=== PATIENT | male | born 1980 | race Caucasian/White ===

== ENCOUNTER 2016-09-16 11:20 | Emergency (ER) | payer OTHER ==
[~2016-09-16] VITALS: Ht 175.2 cm; Wt 127.0 kg
[~2016-09-16 11:20] MED LIST: ACULAR 0.5%3 ML OPH; ATARAX,VISTARIL50 MG PO; BACTRIM DS 8001 TA1 PO; BENTYL20 MG PO; CLINDAMYCIN HC300 MG PO; DICYCLOMINE HCL20 MG PO; EPIPEN 2-PAK1 MG/ML MR; ERYTHROMYCIN5 MG/G1 OP; FLEXERIL10 MG PO; GEODON40 MG PO; HYDROCODONE BIT1 T11 PO; HYDROXYZINE HCL25 M1 PO; KEFLEX500 MG PO; LIDEX 0.05% CRE15 GM T; MOTRIN800 MG PO; NKHM; NO DAILY MEDS; ONDANSETRON HYDR4 M1 PO; PEPCID20 MG PO; PERCOCET 325 MG1 TA3 PO; PREDNISONE10 MG PO; ROBAXIN750 MG PO; SINEMET 25-100M1 TAB PO; TAMIFLU 75MG CA75 MG PO; TOBRADEX 0.1%-01 OI1 OP; TOBREX OPHTH S2.5 ML OPH; VICODIN 5/500 505 MG PO; VICODIN 500 MG-1 TAB PO
[2016-09-16 11:29] VITALS: BP 158/98
[2016-09-16] MEDS ORDERED: BLEPH-10 15 ML15 ML OPH (12:11)
[2016-10-26] MEDS ORDERED: ACULAR 3ML 3 ML5 ML OPH (06:37)
== END 2016-09-16 13:29 | disposition home or self-care (01) ==
LOC: ED 11:20
DX: S05.11XA Contusion of eyeball and orbital tissues, right eye, initial encounter (principal); F12.10 Cannabis abuse, uncomplicated; F11.10 Opioid abuse, uncomplicated; F19.20 Other psychoactive substance dependence, uncomplicated; W22.8XXA Striking against or struck by other objects, initial encounter; Y93.9 Activity, unspecified; Y92.9 Unspecified place or not applicable; Y99.9 Unspecified external cause status

== ENCOUNTER 2019-11-12 12:49 | Emergency (ER) | payer OTHER ==
[~2019-11-12 12:49] MED LIST changes: +ACULAR 3ML 3 ML5 ML OPH; +BLEPH-10 15 ML15 ML OPH
[2019-11-12 12:56] VITALS: BP 153/96
== END 2019-11-12 12:56 | disposition home or self-care (01) ==
LOC: ED 12:49
DX: R50.9 Fever, unspecified (principal); R52 Pain, unspecified

== ENCOUNTER 2020-09-11 16:00 | Emergency (ER) | payer OTHER ==
[~2020-09-11] VITALS: Ht 175.2 cm; Wt 108.9 kg
[2020-09-11 16:29] VITALS: BP 146/80
[2020-09-11] MEDS ORDERED: Tobrex Ophth S2.5 ML OPH (19:11)
== END 2020-09-11 19:18 | disposition home or self-care (01) ==
LOC: ED 16:00
DX: S05.01XA Injury of conjunctiva and corneal abrasion without foreign body, right eye, initial encounter (principal); W22.8XXA Striking against or struck by other objects, initial encounter; Y93.89 Activity, other specified; Y92.89 Other specified places as the place of occurrence of the external cause; Y99.8 Other external cause status

== ENCOUNTER 2020-12-19 19:07 | Emergency (ER) | payer OTHER ==
[~2020-12-19 19:07] MED LIST changes: +Tobrex Ophth S2.5 ML OPH
[2020-12-19 19:56] VITALS: BP 142/78
== END 2020-12-19 20:59 | disposition home or self-care (01) ==
LOC: ED 19:07
DX: S51.812A Laceration without foreign body of left forearm, initial encounter (principal); W31.89XA Contact with other specified machinery, initial encounter; Y93.89 Activity, other specified; Y92.090 Kitchen in other non-institutional residence as the place of occurrence of the external cause; Y99.9 Unspecified external cause status

== ENCOUNTER 2022-05-19 20:36 | Emergency (ER) | payer OTHER ==
[~2022-05-19] VITALS: Wt 90.7 kg
[2022-05-19 20:46] VITALS: BP 145/88
[2022-05-19 21:41] LABS: BASO % 0.4 % (0.0-1.0); EOS # 0.2 10*3/uL (0.0-0.4); EOS % 1.8 % (1.0-4.0); HEMATOCRIT 45.8 % (42.0-52.0); LYMPH # 1.5 10*3/uL (1.3-4.4); LYMPH % 14.6 % (27.0-41.0); MEAN CELL VOLUME 91.1 fl (80.0-94.0); MEAN CORPUSCULAR HGB 30.2 pg (27.0-31.0); MEAN CORPUSCULAR HGB CONC 33.2 g/dl (33.0-37.0); MEAN PLATELET VOLUME 10.5 fl (9.6-12.3); MONO # 0.6 10*3/uL (0.1-1.0); MONO % 5.5 % (3.0-9.0); NEUT # 7.7 10*3/uL (2.3-7.9); NEUT % 77.5 % (47.0-73.0); PLATELET COUNT AUTOMATED 182 10*3/uL (130-400); RED BLOOD COUNT 5.03 10*6/uL (4.50-5.90); RED CELL DISTRI WIDTH 12.5 % (0-14.5)
[2022-05-19 21:56] LABS: ALKALINE PHOSPHATASE 109 U/L (45-117); BUN 14 mg/dl (7-24); CHLORIDE 105 mmol/L (98-107); CREATININE 0.85 mg/dL (0.70-1.30); POTASSIUM 3.9 mmol/L (3.5-5.1); SGOT/AST 14 IU/L (3-35); SGPT/ALT 22 U/L (12-78); SODIUM 139 mmol/L (136-145)
[2022-05-19] MEDS ORDERED: IBUPROFEN600 MG PO (22:48)
[2022-05-19] MEDS ORDERED: VIBRAMYCIN100 MG PO (22:48)
== END 2022-05-19 23:09 | disposition left against medical advice (07) ==
LOC: ED 20:36
PROVIDERS: Physician Assistant
DX: L08.9 Local infection of the skin and subcutaneous tissue, unspecified (principal); Z88.8 Allergy status to other drugs, medicaments and biological substances

== ENCOUNTER 2022-12-11 15:26 | Emergency (ER) | payer OTHER ==
[~2022-12-11] VITALS: Ht 175.2 cm; Wt 90.7 kg
[~2022-12-11 15:26] MED LIST changes: +IBUPROFEN600 MG PO; +VIBRAMYCIN100 MG PO
[2022-12-11] MEDS ORDERED: SUBOXONE 8 MG-1 EACH SL (15:45)
[2022-12-11 16:09] LABS: BASO # 0.1 10*3/uL (0.0-0.1); BASO % 0.7 % (0.0-1.0); EOS # 0.1 10*3/uL (0.0-0.4); EOS % 1.9 % (1.0-4.0); HEMATOCRIT 43.3 % (42.0-52.0); LYMPH # 2.1 10*3/uL (1.3-4.4); MEAN CELL VOLUME 88.7 fl (80.0-94.0); MEAN CORPUSCULAR HGB 29.9 pg (27.0-31.0); MEAN CORPUSCULAR HGB CONC 33.7 g/dl (33.0-37.0); MONO # 0.3 10*3/uL (0.1-1.0); MONO % 4.7 % (3.0-9.0); NEUT # 4.2 10*3/uL (2.3-7.9); NEUT % 61.4 % (47.0-73.0); PLATELET COUNT AUTOMATED 209 10*3/uL (130-400); RED BLOOD COUNT 4.88 10*6/uL (4.50-5.90); RED CELL DISTRI WIDTH 13.2 % (0-14.5); WHITE BLOOD COUNT 6.8 10*3/uL (4.8-10.8)
[2022-12-11 16:23] LABS: ALKALINE PHOSPHATASE 91 U/L (46-116); BUN 10 mg/dl (9-23); CHLORIDE 102 mmol/L (98-107); SGPT/ALT 9 U/L (10-49); TOTAL PROTEIN 6.8 gm/dL (6.0-8.0)
[2022-12-11 18:58] VITALS: BP 143/80
== END 2022-12-11 20:10 | disposition short-term general hospital (02) ==
LOC: ED 15:26
PROVIDERS: Internal Medicine
DX: S02.2XXB Fracture of nasal bones, initial encounter for open fracture (principal); K08.89 Other specified disorders of teeth and supporting structures; I10 Essential (primary) hypertension; M19.90 Unspecified osteoarthritis, unspecified site; Z88.5 Allergy status to narcotic agent; W22.8XXA Striking against or struck by other objects, initial encounter; Y93.89 Activity, other specified; Y92.89 Other specified places as the place of occurrence of the external cause; Y99.0 Civilian activity done for income or pay

== ENCOUNTER 2024-04-24 13:10 | Emergency (ER) | payer OTHER ==
[~2024-04-24] VITALS: Wt 79.8 kg
[~2024-04-24 13:10] MED LIST changes: +SUBOXONE 8 MG-1 EACH SL
[2024-04-24 13:30] VITALS: BP 120/82
[2024-04-24] MEDS ORDERED: Acetaminophen/Hydrocodone 5 MG/325 MG TABLET PO ONE (13:40)
[2024-04-24] MEDS ORDERED: VIBRAMYCIN100 MG PO (14:12)
[2024-04-24] MEDS ORDERED: HYDROCODONE-AC1 EAC1 PO (14:16)
[2024-04-29] MEDS ORDERED: NEURONTIN600 MG PO (15:27)
[2024-05-01] MEDS ORDERED: XARELTO10 MG PO (10:37)
[2024-05-01] MEDS ORDERED: DOXYCYCLINE150 MG PO (10:37)
[2024-05-01] MEDS ORDERED: TYLENOL EXTRA500 MG PO ×2 (10:37→11:36)
[2024-05-01] MEDS ORDERED: TRAMADOL HCL25 MG PO (11:42)
== END 2024-04-24 14:35 | disposition home or self-care (01) ==
LOC: ED 13:10
DX: S92.312A Displaced fracture of first metatarsal bone, left foot, initial encounter for closed fracture (principal); S92.325A Nondisplaced fracture of second metatarsal bone, left foot, initial encounter for closed fracture; Z88.5 Allergy status to narcotic agent; W20.8XXA Other cause of strike by thrown, projected or falling object, initial encounter; Y93.89 Activity, other specified; Y92.89 Other specified places as the place of occurrence of the external cause; Y99.8 Other external cause status

== ENCOUNTER → 2024-05-01 | Day surgery (SDC) | payer OTHER ==
[~2024-05-01] VITALS: Ht 167.6 cm; Wt 79.8 kg
[2024-05-01] VITALS (7 sets, daily range): BP systolic 129–162; BP diastolic 74–102
[~2024-05-01] MED LIST changes: +ACETAMINOPHEN 100 ML IV ONE; +BUPIVACAINE 0.5% 30 ML IV ONE; +CIPRO500 MG PO; +Clindamycin Phosphate 50 ML IV ONE; +DOXYCYCLINE150 MG PO; +Dexamethasone Sodium Phospha 4 MG/ML VIAL IV ONE; +HYDROCODONE-AC1 EAC1 PO; +HYDROmorphONE Hydrochloride 0.5 MG/0.5 ML SYRINGE IV PRN; +HYDROmorphONE Hydrochloride 0.5 MG/0.5 ML SYRINGE ONE; +Ketamine Hydrochloride 500 MG/10 ML VIAL IV ONE; +Ketorolac Tromethamine 30 MG/ML VIAL IV ONE; +Lactated Ringer's Solution 1,000 ML IV ONE; +Lidocaine Hydrochloride 5 ML VIAL IV ONE; +MAGNESIUM SULFATE 1 GM/2 ML VIAL IV ONE; +Midazolam Hydrochloride 2 MG/2 ML VIAL IV ONE; +NEURONTIN600 MG PO; +Ondansetron Hydrochloride 4 MG/2 ML VIAL IV ONE; +PROPOFOL 200 MG/20 ML VIAL IV ONE; +SEVOFLURANE 250 ML BOT INH ONE; +TRAMADOL HCL25 MG PO; +TYLENOL EXTRA500 MG PO; +Vancomycin Hydrochloride 1,000 MG VIAL T ONE; +XARELTO10 MG PO; +fentaNYL CITRATE 100 MCG/2 ML VIAL IV ONE
== END | disposition home or self-care (01) ==
LOC: SDC 04-29 14:00
PROVIDERS: ATTEND Podiatrist
DX: S92.312A Displaced fracture of first metatarsal bone, left foot, initial encounter for closed fracture (principal); I10 Essential (primary) hypertension; F12.90 Cannabis use, unspecified, uncomplicated; Z90.89 Acquired absence of other organs; Z98.890 Other specified postprocedural states; Z88.5 Allergy status to narcotic agent; Z79.891 Long term (current) use of opiate analgesic; Z79.899 Other long term (current) drug therapy; X58.XXXA Exposure to other specified factors, initial encounter; Y93.89 Activity, other specified; Y92.89 Other specified places as the place of occurrence of the external cause; Y99.8 Other external cause status

== ENCOUNTER 2024-05-16 13:10 | Emergency (ER) | payer OTHER ==
[~2024-05-16] VITALS: Ht 175.2 cm; Wt 90.7 kg
[~2024-05-16 13:10] MED LIST changes: -ACETAMINOPHEN 100 ML IV ONE; -BUPIVACAINE 0.5% 30 ML IV ONE; -CIPRO500 MG PO; -Clindamycin Phosphate 50 ML IV ONE; -Dexamethasone Sodium Phospha 4 MG/ML VIAL IV ONE; -HYDROmorphONE Hydrochloride 0.5 MG/0.5 ML SYRINGE IV PRN; -HYDROmorphONE Hydrochloride 0.5 MG/0.5 ML SYRINGE ONE; -Ketamine Hydrochloride 500 MG/10 ML VIAL IV ONE; -Ketorolac Tromethamine 30 MG/ML VIAL IV ONE; -Lactated Ringer's Solution 1,000 ML IV ONE; -Lidocaine Hydrochloride 5 ML VIAL IV ONE; -MAGNESIUM SULFATE 1 GM/2 ML VIAL IV ONE; -Midazolam Hydrochloride 2 MG/2 ML VIAL IV ONE; -Ondansetron Hydrochloride 4 MG/2 ML VIAL IV ONE; -PROPOFOL 200 MG/20 ML VIAL IV ONE; -SEVOFLURANE 250 ML BOT INH ONE; -Vancomycin Hydrochloride 1,000 MG VIAL T ONE; -fentaNYL CITRATE 100 MCG/2 ML VIAL IV ONE
[2024-05-16 13:13] VITALS: BP 153/94
[2024-05-16] MEDS ORDERED: SODIUM CHLORIDE 0.9% 1,000 ML IV ONE (13:30)
[2024-05-16 13:49] LABS: BASO # 0.1 10*3/uL (0.0-0.1); BASO % 0.6 % (0.0-1.0); EOS # 0.1 10*3/uL (0.0-0.4); EOS % 1.1 % (1.0-4.0); HEMATOCRIT 39.3 % (42.0-52.0); LYMPH # 1.7 10*3/uL (1.3-4.4); LYMPH % 19.9 % (27.0-41.0); MEAN CELL VOLUME 88.9 fl (80.0-94.0); MEAN CORPUSCULAR HGB 30.3 pg (27.0-31.0); MEAN CORPUSCULAR HGB CONC 34.1 g/dl (33.0-37.0); MEAN PLATELET VOLUME 9.9 fl (9.6-12.3); MONO # 0.4 10*3/uL (0.1-1.0); NEUT # 6.1 10*3/uL (2.3-7.9); NEUT % 73.2 % (47.0-73.0); PLATELET COUNT AUTOMATED 231 10*3/uL (130-400); RED BLOOD COUNT 4.42 10*6/uL (4.50-5.90); RED CELL DISTRI WIDTH 13.1 % (0-14.5); WHITE BLOOD COUNT 8.3 10*3/uL (4.8-10.8)
[2024-05-16 14:08] LABS: BUN 11 mg/dl (9-23); CHLORIDE 103 mmol/L (98-107)
[2024-05-16] MEDS ORDERED: CIPRO500 MG PO (17:43)
[2024-05-16] MEDS ORDERED: VIBRAMYCIN100 MG PO (17:43)
== END 2024-05-16 19:31 | disposition home or self-care (01) ==
LOC: ED 13:10
PROVIDERS: Emergency Medicine
DX: L03.116 Cellulitis of left lower limb (principal); I10 Essential (primary) hypertension; M19.90 Unspecified osteoarthritis, unspecified site; Z88.5 Allergy status to narcotic agent; Z90.89 Acquired absence of other organs; Z98.890 Other specified postprocedural states; Z87.891 Personal history of nicotine dependence

== ENCOUNTER 2024-05-30 12:54 | Emergency (ER) | payer OTHER ==
[~2024-05-30] VITALS: Ht 175.2 cm; Wt 68.0 kg
[~2024-05-30 12:54] MED LIST changes: +CIPRO500 MG PO
[2024-05-30 13:16] VITALS: BP 147/92
== END 2024-05-30 13:51 | disposition left against medical advice (07) ==
LOC: ED 12:54
DX: R10.11 Right upper quadrant pain (principal); R11.10 Vomiting, unspecified; F19.10 Other psychoactive substance abuse, uncomplicated; Z88.5 Allergy status to narcotic agent; Z90.89 Acquired absence of other organs; Z98.890 Other specified postprocedural states; Z53.29 Procedure and treatment not carried out because of patient's decision for other reasons

== ENCOUNTER 2024-06-10 17:20 | Inpatient (IN) | payer OTHER ==
[~2024-06-10] VITALS: Ht 167.6 cm; Wt 83.6 kg
[2024-06-10 17:53] VITALS: BP 136/81
[2024-06-10] MEDS ORDERED: SODIUM CHLORIDE 0.9% 1,000 ML IV SCH (18:20)
[2024-06-10] MEDS ORDERED: Piperacillin Sodium/Tazobact 50 ML IV ONE (18:25)
[2024-06-10] MEDS ORDERED: Ketorolac Tromethamine 30 MG/ML VIAL IV ONE (18:25)
[2024-06-10] MEDS ORDERED: Vancomycin Hydrochloride 250 ML IV ONE (18:25)
[2024-06-10] MEDS ORDERED: IOHEXOL 300 MG/ML 100 ML VIAL IV ONE (18:35)
[2024-06-10 18:42] LABS: BASO % 0.5 % (0.0-1.0); EOS # 0.1 10*3/uL (0.0-0.4); EOS % 1.8 % (1.0-4.0); HEMATOCRIT 41.7 % (42.0-52.0); LYMPH # 1.9 10*3/uL (1.3-4.4); LYMPH % 28.1 % (27.0-41.0); MEAN CELL VOLUME 94.6 fl (80.0-94.0); MEAN CORPUSCULAR HGB 30.4 pg (27.0-31.0); MEAN CORPUSCULAR HGB CONC 32.1 g/dl (33.0-37.0); MEAN PLATELET VOLUME 9.8 fl (9.6-12.3); MONO # 0.5 10*3/uL (0.1-1.0); MONO % 7.4 % (3.0-9.0); NEUT # 4.1 10*3/uL (2.3-7.9); NEUT % 61.7 % (47.0-73.0); PLATELET COUNT AUTOMATED 216 10*3/uL (130-400); RED BLOOD COUNT 4.41 10*6/uL (4.50-5.90); RED CELL DISTRI WIDTH 13.9 % (0-14.5); WHITE BLOOD COUNT 6.6 10*3/uL (4.8-10.8)
[2024-06-10 18:54] LABS: ACT PARTIAL THROMBO TIME 27.9 SECONDS (20.0-32.1)
[2024-06-10 19:02] LABS: ALKALINE PHOSPHATASE 114 U/L (46-116); BUN 9 mg/dl (9-23); CHLORIDE 103 mmol/L (98-107); SGPT/ALT 8 U/L (5-49); TOTAL PROTEIN 6.7 gm/dL (6.0-8.0)
[2024-06-10] MEDS ORDERED: Magnesium Hydroxide 30 ML UDC PO PRN (20:45)
[2024-06-10] MEDS ORDERED: Acetaminophen/Hydrocodone 5 MG/325 MG TABLET PO PRN (20:45)
[2024-06-10] MEDS ORDERED: Ondansetron Hydrochloride 4 MG/2 ML VIAL IV PRN (20:45)
[2024-06-10] MEDS ORDERED: BISACODYL 10 MG SUPP R PRN (20:45)
[2024-06-10] MEDS ORDERED: ACETAMINOPHEN 650 MG SUPP R PRN (20:45)
[2024-06-10] MEDS ORDERED: ACETAMINOPHEN 325 MG TAB PO PRN (20:45)
[2024-06-10] MEDS ORDERED: BISACODYL 5 MG TAB PO PRN (20:45)
[2024-06-10 21:47] VITALS: BP 124/70
[2024-06-10] MEDS ORDERED: Vancomycin Hydrochloride 1,000 MG in SODIUM CHLORIDE 0.9% 250 ML IV SCH (22:00)
[2024-06-10] MEDS ORDERED: methylPREDNISolone 4 MG TAB PO SCH (22:00)
[2024-06-11 00:56] VITALS: BP 121/70
[2024-06-11 00:57] VITALS: BP 121/70
[2024-06-11] MEDS ORDERED: Piperacillin Sodium/Tazobact 50 ML IV SCH (02:00)
[2024-06-11] MEDS ORDERED: GABAPENTIN 600 MG TAB PO SCH (06:00)
[2024-06-11 06:38] LABS: BASO % 0.8 % (0.0-1.0); EOS # 0.1 10*3/uL (0.0-0.4); EOS % 2.8 % (1.0-4.0); HEMATOCRIT 40.7 % (42.0-52.0); LYMPH # 1.9 10*3/uL (1.3-4.4); LYMPH % 37.7 % (27.0-41.0); MEAN CELL VOLUME 94.9 fl (80.0-94.0); MEAN CORPUSCULAR HGB 30.1 pg (27.0-31.0); MEAN CORPUSCULAR HGB CONC 31.7 g/dl (33.0-37.0); MEAN PLATELET VOLUME 9.9 fl (9.6-12.3); MONO # 0.4 10*3/uL (0.1-1.0); MONO % 8.7 % (3.0-9.0); NEUT # 2.5 10*3/uL (2.3-7.9); NEUT % 49.8 % (47.0-73.0); PLATELET COUNT AUTOMATED 186 10*3/uL (130-400); RED BLOOD COUNT 4.29 10*6/uL (4.50-5.90); RED CELL DISTRI WIDTH 14.2 % (0-14.5); WHITE BLOOD COUNT 5.1 10*3/uL (4.8-10.8)
[2024-06-11 06:59] LABS: BUN 12 mg/dl (9-23); CHLORIDE 108 mmol/L (98-107); CHOLESTEROL 189 mg/dL (<200); FREE T4 0.87 ng/dl (0.89-1.76); LDL CHOLESTEROL 115 mg/dL (9-159); TRIGLYCERIDES 63 mg/dl (<150)
[2024-06-11 08:00] VITALS: BP 120/85
[2024-06-11] MEDS ORDERED: methylPREDNISolone 4 MG TAB PO SCH ×2 (08:30→12:30)
[2024-06-11] MEDS ORDERED: Enoxaparin Sodium 40 MG/0.4 ML SYR SC SCH (10:00)
[2024-06-11] MEDS ORDERED: Lactobacillus Acidophilus/LA 1 TAB TAB PO SCH (10:00)
[2024-06-11 12:00] VITALS: BP 129/83
[2024-06-11 16:00] VITALS: BP 138/85
[2024-06-11 20:00] VITALS: BP 132/81
[2024-06-11] MEDS ORDERED: Vancomycin Hydrochloride 1,000 MG in SODIUM CHLORIDE 0.9% 250 ML IV SCH (22:00)
[2024-06-12] VITALS: BP 133/77
[2024-06-12 06:24] LABS: BASO % 0.3 % (0.0-1.0); HEMATOCRIT 44.4 % (42.0-52.0); LYMPH # 1.2 10*3/uL (1.3-4.4); LYMPH % 10.2 % (27.0-41.0); MEAN CELL VOLUME 92.9 fl (80.0-94.0); MEAN CORPUSCULAR HGB 30.5 pg (27.0-31.0); MEAN CORPUSCULAR HGB CONC 32.9 g/dl (33.0-37.0); MEAN PLATELET VOLUME 10.6 fl (9.6-12.3); MONO # 0.4 10*3/uL (0.1-1.0); NEUT % 86.1 % (47.0-73.0); PLATELET COUNT AUTOMATED 229 10*3/uL (130-400); RED BLOOD COUNT 4.78 10*6/uL (4.50-5.90); RED CELL DISTRI WIDTH 13.5 % (0-14.5); WHITE BLOOD COUNT 11.7 10*3/uL (4.8-10.8)
[2024-06-12 06:52] LABS: BUN 11 mg/dl (9-23); CHLORIDE 102 mmol/L (98-107); POTASSIUM 4.5 mmol/L (3.4-5.1)
[2024-06-12] MEDS ORDERED: methylPREDNISolone 4 MG TAB PO SCH ×2 (07:30→22:00)
[2024-06-12 08:00] VITALS: BP 124/93; BP 127/78
[2024-06-12] MEDS ORDERED: Cholecalciferol 2,000 UNIT TABLET (50 MCG) PO SCH (10:00)
[2024-06-12] MEDS ORDERED: VITAMIN D350 MCG PO (12:08)
[2024-06-12] MEDS ORDERED: LACTINEX 0.2 MG1 TAB PO (12:08)
[2024-06-12] MEDS ORDERED: DOXYCYCLINE HY100 M3 PO (12:08)
[2024-06-13] MEDS ORDERED: methylPREDNISolone 4 MG TAB PO SCH (22:00)
[2024-06-14] MEDS ORDERED: methylPREDNISolone 4 MG TAB PO SCH (07:30)
[2024-06-15] MEDS ORDERED: methylPREDNISolone 4 MG TAB PO SCH (07:30)
== END 2024-06-12 12:36 | disposition left against medical advice (07) | DRG 721 ==
LOC: ED 17:20 → 4E 20:18 → EDHOLD 20:18 → 4E 22:48
PROVIDERS: Nurse Practitioner; Student in an Organized Health Care Education/Training Program; ADMIT Family Medicine; ATTEND Family Medicine
DX: T81.49XA Infection following a procedure, other surgical site, initial encounter (principal); E44.1 Mild protein-calorie malnutrition; L03.116 Cellulitis of left lower limb; D64.9 Anemia, unspecified; G62.9 Polyneuropathy, unspecified; Z88.8 Allergy status to other drugs, medicaments and biological substances; Z82.49 Family history of ischemic heart disease and other diseases of the circulatory system; Z83.3 Family history of diabetes mellitus; Z68.29 Body mass index [BMI] 29.0-29.9, adult; Y83.8 Other surgical procedures as the cause of abnormal reaction of the patient, or of later complication, without mention of misadventure at the time of the procedure; Y92.89 Other specified places as the place of occurrence of the external cause; Z88.6 Allergy status to analgesic agent; Z82.3 Family history of stroke

== ENCOUNTER 2024-06-23 19:08 | Inpatient (IN) | payer OTHER ==
[~2024-06-23] VITALS: Ht 175.2 cm; Wt 91.2 kg
[~2024-06-23 19:08] MED LIST changes: +DOXYCYCLINE HY100 M3 PO; +LACTINEX 0.2 MG1 TAB PO; +VITAMIN D350 MCG PO
[2024-06-23 19:51] VITALS: BP 145/83
[2024-06-23] MEDS ORDERED: Piperacillin Sodium/Tazobact 50 ML IV ONE (20:30)
[2024-06-23] MEDS ORDERED: SODIUM CHLORIDE 0.9% 1,000 ML IV SCH (20:30)
[2024-06-23] MEDS ORDERED: Vancomycin Hydrochloride 250 ML IV ONE (20:30)
[2024-06-23 21:02] LABS: BASO # 0.1 10*3/uL (0.0-0.1); BASO % 0.5 % (0.0-1.0); EOS # 0.1 10*3/uL (0.0-0.4); EOS % 1.3 % (1.0-4.0); HEMATOCRIT 39.4 % (42.0-52.0); MEAN CELL VOLUME 92.7 fl (80.0-94.0); MEAN CORPUSCULAR HGB 30.1 pg (27.0-31.0); MEAN CORPUSCULAR HGB CONC 32.5 g/dl (33.0-37.0); MONO # 0.7 10*3/uL (0.1-1.0); MONO % 7.5 % (3.0-9.0); NEUT # 6.4 10*3/uL (2.3-7.9); NEUT % 66.5 % (47.0-73.0); PLATELET COUNT AUTOMATED 241 10*3/uL (130-400); RED BLOOD COUNT 4.25 10*6/uL (4.50-5.90); RED CELL DISTRI WIDTH 12.9 % (0-14.5); WHITE BLOOD COUNT 9.7 10*3/uL (4.8-10.8)
[2024-06-23 21:22] LABS: ALKALINE PHOSPHATASE 117 U/L (46-116); BUN 14 mg/dl (9-23); CHLORIDE 104 mmol/L (98-107); POTASSIUM 3.6 mmol/L (3.4-5.1); SGPT/ALT 10 U/L (5-49); TOTAL PROTEIN 6.8 gm/dL (6.0-8.0)
[2024-06-23] MEDS ORDERED: Acetaminophen/Hydrocodone 5 MG/325 MG TABLET PO PRN (22:40)
[2024-06-23] MEDS ORDERED: Ondansetron Hydrochloride 4 MG/2 ML VIAL IV PRN (22:40)
[2024-06-23] MEDS ORDERED: BISACODYL 5 MG TAB PO PRN (22:40)
[2024-06-23] MEDS ORDERED: Magnesium Hydroxide 30 ML UDC PO PRN (22:40)
[2024-06-23] MEDS ORDERED: ACETAMINOPHEN 650 MG SUPP R PRN (22:40)
[2024-06-23] MEDS ORDERED: BISACODYL 10 MG SUPP R PRN (22:40)
[2024-06-23] MEDS ORDERED: ACETAMINOPHEN 325 MG TAB PO PRN (22:40)
[2024-06-23] MEDS ORDERED: Vancomycin Hydrochloride 1,000 MG in SODIUM CHLORIDE 0.9% 250 ML IV SCH (22:45)
[2024-06-23] MEDS ORDERED: diphenhydrAMINE hydrochloride 25 MG CAP PO PRN (23:20)
[2024-06-24] VITALS (7 sets, daily range): BP systolic 99–139; BP diastolic 57–80
[2024-06-24] MEDS ORDERED: Piperacillin Sodium/Tazobact 50 ML IV SCH (02:00)
[2024-06-24] MEDS ORDERED: GABAPENTIN 600 MG TAB PO SCH (06:00)
[2024-06-24] MEDS ORDERED: Vancomycin Hydrochloride 1,000 MG in SODIUM CHLORIDE 0.9% 250 ML IV SCH (06:00)
[2024-06-24 06:47] LABS: BASO % 0.6 % (0.0-1.0); EOS # 0.1 10*3/uL (0.0-0.4); EOS % 1.5 % (1.0-4.0); HEMATOCRIT 35.7 % (42.0-52.0); MEAN CELL VOLUME 92.2 fl (80.0-94.0); MEAN CORPUSCULAR HGB 30.5 pg (27.0-31.0); MEAN CORPUSCULAR HGB CONC 33.1 g/dl (33.0-37.0); MEAN PLATELET VOLUME 10.1 fl (9.6-12.3); MONO # 0.6 10*3/uL (0.1-1.0); MONO % 8.5 % (3.0-9.0); NEUT # 3.6 10*3/uL (2.3-7.9); NEUT % 55.5 % (47.0-73.0); PLATELET COUNT AUTOMATED 196 10*3/uL (130-400); RED BLOOD COUNT 3.87 10*6/uL (4.50-5.90); RED CELL DISTRI WIDTH 13.2 % (0-14.5); WHITE BLOOD COUNT 6.6 10*3/uL (4.8-10.8)
[2024-06-24 07:06] LABS: BUN 13 mg/dl (9-23); CHLORIDE 107 mmol/L (98-107); FREE T4 1.04 ng/dl (0.89-1.76); POTASSIUM 3.7 mmol/L (3.4-5.1)
[2024-06-24] MEDS ORDERED: Enoxaparin Sodium 40 MG/0.4 ML SYR SC SCH (10:00)
[2024-06-24] MEDS ORDERED: hydrOXYzine hydrochloride 10 MG TAB PO PRN (12:50)
[2024-06-25] VITALS: BP 117/72
[2024-06-25 06:45] LABS: BUN 13 mg/dl (9-23); CHLORIDE 106 mmol/L (98-107); POTASSIUM 4.3 mmol/L (3.4-5.1)
[2024-06-25 08:00] VITALS: BP 131/81
[2024-06-25] MEDS ORDERED: Cholecalciferol 2,000 UNIT TABLET (50 MCG) PO SCH (10:00)
[2024-06-25 12:00] VITALS: BP 137/70
[2024-06-25 16:00] VITALS: BP 121/64
[2024-06-25 20:00] VITALS: BP 133/76
[2024-06-26] VITALS: BP 119/77
[2024-06-26 05:48] LABS: BUN 17 mg/dl (9-23); CHLORIDE 106 mmol/L (98-107); POTASSIUM 4.1 mmol/L (3.4-5.1)
[2024-06-26 08:00] VITALS: BP 119/72
[2024-06-26 12:00] VITALS: BP 126/79
[2024-06-26] MEDS ORDERED: LEVOFLOXACIN750 M2 PO ×2 (12:46→12:47)
[2024-06-26] MEDS ORDERED: AMOX-CLAV 875-1 EACH PO (12:46)
== END 2024-06-26 15:43 | disposition home or self-care (01) | DRG 721 ==
LOC: ED 19:08 → 4E 22:21 → EDHOLD 22:21 → 4E 06-24 17:51
PROVIDERS: Nurse Practitioner Family; Student in an Organized Health Care Education/Training Program; ADMIT Internal Medicine; ATTEND Internal Medicine
DX: T81.49XA Infection following a procedure, other surgical site, initial encounter (principal); B96.1 Klebsiella pneumoniae [K. pneumoniae] as the cause of diseases classified elsewhere; B95.2 Enterococcus as the cause of diseases classified elsewhere; B96.5 Pseudomonas (aeruginosa) (mallei) (pseudomallei) as the cause of diseases classified elsewhere; L03.116 Cellulitis of left lower limb; D64.9 Anemia, unspecified; Y83.8 Other surgical procedures as the cause of abnormal reaction of the patient, or of later complication, without mention of misadventure at the time of the procedure; M48.061 Spinal stenosis, lumbar region without neurogenic claudication; M54.16 Radiculopathy, lumbar region; I73.9 Peripheral vascular disease, unspecified; G62.9 Polyneuropathy, unspecified; Z87.81 Personal history of (healed) traumatic fracture; Y92.89 Other specified places as the place of occurrence of the external cause; Z91.148 Patient's other noncompliance with medication regimen for other reason; Z82.49 Family history of ischemic heart disease and other diseases of the circulatory system; Z83.3 Family history of diabetes mellitus; Z88.5 Allergy status to narcotic agent; Z79.899 Other long term (current) drug therapy

== ENCOUNTER 2024-11-13 17:47 | Emergency (ER) | payer OTHER ==
[~2024-11-13] VITALS: Ht 175.2 cm; Wt 78.5 kg
[~2024-11-13 17:47] MED LIST changes: +AMOX-CLAV 875-1 EACH PO; +LEVOFLOXACIN750 M2 PO
[2024-11-13 17:53] VITALS: BP 168/77
== END 2024-11-13 18:16 | disposition left against medical advice (07) ==
LOC: ED 17:47
DX: F32.A Depression, unspecified (principal); I10 Essential (primary) hypertension; F14.10 Cocaine abuse, uncomplicated; F11.10 Opioid abuse, uncomplicated; F12.10 Cannabis abuse, uncomplicated; Z79.899 Other long term (current) drug therapy; Z88.5 Allergy status to narcotic agent; Z90.89 Acquired absence of other organs; Z98.890 Other specified postprocedural states